=== PATIENT | male | born 1995 | race Caucasian/White ===

== ENCOUNTER 2019-11-15 10:05 | Outpatient (CLI) | payer BC ==
--- NOTE | 2019-11-15 10:25 | ULT ---
RIGHT UPPER QUADRANT ULTRASOUND: Date: 11/15/2019 HISTORY: Right upper quadrant pain. FINDINGS: The liver demonstrates homogeneous echotexture without focal mass or intrahepatic ductal dilatation. The pancreas is not well visualized due to overlying bowel gas. No gallstones, gallbladder wall thick ening, or pericholecystic fluid seen. There are a couple of nonshadowing echogenic foci arising from the wall of the gallbladder without shadowing or mobility measuring up to 4.0 mm. These are consisten t with gallbladder polyps. The common duct measures 4.0 mm in diameter. No right-sided hydronephrosis is seen. There is a 1.4 cm cyst arising from the right kidney. No free fluid is seen in Morison's po uch. IMPRESSION: 1. Gallbladder polyps. 2. Right renal cyst. POS: [facility]
== END 2019-11-15 10:06 | disposition home or self-care (01) ==
LOC: BICULT 10:05
PROVIDERS: ATTEND Family Medicine
DX: R10.11 Right upper quadrant pain (principal); N28.1 Cyst of kidney, acquired; K82.4 Cholesterolosis of gallbladder
CPT/HCPCS: 76705

== ENCOUNTER 2021-06-03 07:25 | Outpatient (CLI) | payer BC | END 2021-06-03 07:26 | disposition home or self-care (01) | LOC: BICULT 07:25 | PROVIDERS: ATTEND Student in an Organized Health Care Education/Training Program | DX: R74.01 Elevation of levels of liver transaminase levels (principal); N28.1 Cyst of kidney, acquired; R93.2 Abnormal findings on diagnostic imaging of liver and biliary tract | CPT/HCPCS: 76705 ==